=== PATIENT | female | born 1930 | race Caucasian/White ===

== ENCOUNTER 2017-02-11 11:30 | Emergency (ER) | payer OTHER, MEDICARE ==
[~2017-02-11] VITALS: Ht 160 cm; Wt 68.0 kg
[~2017-02-11 11:30] MED LIST: ASPIR 8181 MG PO; ASPIRIN CHILDRE81 MG PO; AVAPRO150 M1 PO; CALCIUM 600600 M1 PO; CORGARD20 MG PO; DOXYCYCLINE100 M3 PO; ECOTRIN81 MG PO; IRBESARTAN300 MG PO; MAGNESIUM OXID400 M1 PO; METHENAMINE HIPP1 GM PO; MOTRIN 400 MG400 MG PO; MOTRIN IB200 MG PO; NITROFURANTOIN100 MG PO; NORVASC 2.5 MG2.5 MG PO; OMEGA-3 FISH O1 EAC4 PO; PRAVASTATIN SOD40 M2 PO; PREDNISONE 1 MG1 MG PO; PREDNISONE5 MG PO; PRILOSEC 20MG C20 MG PO; PROBIOTIC FORM1 EACH PO; PROBIOTIC FORMU1 CAP PO; SMZ-TMP 800 MG-1 TAB PO; TEMOVATE TOP; TRIAMTERENE AND1 CAP PO; TRIAMTERENE-HCTZ 37. PO; TRIAMTERENE/HCT1 CAP PO; VITAMIN C500 M6 PO; VITAMIN D1000 IU PO
[2017-02-11 11:51] VITALS: BP 143/76
--- NOTE | 2017-02-11 12:52 | RADIOLOGY REPORT ---
EXAMINATION: XR HIP, LEFT CLINICAL INFORMATION: Pain x1 week. History of surgery. COMPARISON: Left hip radiographs 07/09/2011. TECHNIQUE: Two views of the left hip. FINDINGS: There are chronic postoperative changes of an open reduction internal fixation of a left intertrochanteric hip fracture. Hardware is intact. There is no evidence of loosening or infection. There is an exuberant medially projecting osteophyte arises from the lesser trochanter. No clear evidence of acute fracture. No dislocation. Visualized portions of the left hemipelvis reveal no abnormal finding. IMPRESSION: There are chronic postoperative changes of an open reduction internal fixation of a left intertrochanteric hip fracture. No evidence of hardware loosening or infection. An exuberant medially projecting osteophyte arising from the lesser trochanter is present which could potentially cause impingement. No clear evidence of acute fracture.
--- NOTE | 2017-02-11 13:07 | ED UPPER/LOWER EXTREMITY COMPL ---
History of Present Illness General Chief Complaint: Hip Injury Stated Complaint: HIP PAIN Source: patient, family Exam Limitations: no limitations Vital Signs & Intake/Output Vital Signs & Intake/Output Vital Signs Date Time Temp Pulse Resp B/P Pulse O2 O2 Flow FiO2 Ox Delivery Rate 02/11 1151 97.4 94 16 143/76 95 Room Air Allergies Coded Allergies: Sulfa (Sulfonamide Antibiotics) (Severe, SEVERE BODY RASH 01/30/16) cephalexin (Severe, "PIA JOSE SYNDROME" 01/30/16) Penicillins (Intermediate, RASH 01/30/16) levofloxacin (Intermediate, SORES IN MOUTH 01/30/16) sulfamethoxazole (From BACTRIM) (Intermediate, RASH 01/30/16) trimethoprim (From BACTRIM) (Intermediate, RASH 01/30/16) Quinolones (RASH 01/30/16) nitrofurantoin (SJS 01/30/16) ibuprofen (Mild, GI UPSET 01/30/16) Reconcile Medications Ascorbic Acid (Vitamin C) 500 MG TAB 1 TAB PO DAILY SUPPLEMENT (Reported) Aspirin (Ecotrin) 81 MG TABLET.DR 1 TAB PO DAILY HEART HEALTH START TAKING ON 01/15/15 Calcium Carbonate (Calcium 600) 600 MG TAB 1 TAB PO DAILY SUPPLEMENT ( Reported) Cholecalciferol (Vitamin D3) 1,000 UNIT TABLET 1 TAB PO DAILY SUPPLEMENT ( Reported) Inulin/Lactobacillus Sporoge (Probiotic Formula) 1 CAP CAP 1 CAP PO DAILY GI (Reported) Irbesartan (Avapro) 150 MG TAB 1 TAB PO QHS BLOOD PRESSURE (Reported) Magnesium Oxide 400 MG TABLET 1 TAB PO DAILY SUPPLEMENT (Reported) Methenamine Hippurate 1 GRAM TABLET 1 TAB PO BID uti PROPHYLAXIS (Reported) Nadolol (Corgard) 20 MG TABLET 1 TAB PO DAILY HYPERTENSION (Reported) OMEGA-3/DHA/EPA/FISH OIL ([place]-3 Fish Oil 1,000 MG Sftg) 300 MG-1,000 MG CAPSULE 1 TAB PO TID SUPLLEMENT (Reported) Omeprazole (Prilosec) 20 MG CAPSULE.DR 2 TAB PO DAILY REFLUX Pravastatin Sodium (Pravastatin) 40 MG TAB 1 TAB PO DAILY CHOLOSTEROL ( Reported) Prednisone 5 MG TAB 1 TAB PO DAILY PMR (Reported) Triage Note: 87 Y/O FEMALE C/O L HIP PAIN RADIATING DOWN L LEG SINCE THE WEEKEND. PT STATES SHE HAD SURGERY 6 YEARS AGO AND NOTICED THE PAIN STARTED LAST WEEK WITH NO INJURY OR TRAUMA. HAS BEEN TAKING TYLENOL WITH GOOD RELIEF. DECLINES OFFER OF MEDS OR W/C. XRAY ORDERED. Triage Nurses Notes Reviewed? yes Onset: Gradual Duration: getting worse Severity: moderate Severity Numbers: 5 No Modifying Factors: none HPI: Patient is a 87-year-old female with a past medical history of left hip fracture with open reduction internal fixation performed by orthopedic Dr. Mariano approximate 6 years ago where patient presents to the emergency room with a gradual onset of a 4-6 week history of left-sided worsening left hip pain. Patient denies any mechanism injury or recent fall. Patient does state intermittently she complains of shooting pain down her leg. Patient has been taking Tylenol with relief of symptoms. Patient denies any back pain abdominal pain leg swelling nausea vomiting dysuria or hematuria or fever chills. Patient states that she has been asymptomatic of left leg shooting pain for the past 24 hours. Patient states ambulation makes worse. (MINGO CLAIRE) Past History Travel History Traveled to [place] past 21 day No Medical History Any Pertinent Medical History? none Neurological: NONE EENT: NONE Cardiovascular: CAD, hypertension Respiratory: NONE Gastrointestinal: NONE Hepatic: NONE Renal: NONE Musculoskeletal: NONE Psychiatric: NONE Endocrine: NONE Blood Disorders: NONE Cancer(s): NONE History of MRSA: No History of VRE: No History of CDIFF: No Pneumonia Vaccine: 07/13/11 Influenza Vaccine: 09/01/14 Surgical History Surgical History: non-contributory Psychosocial History Who do you live with Spouse Services at Home None What is your primary language Moroccan Tobacco Use: Never used Family History Family History, If Any: Relation not specified for: FH: CAD (coronary artery disease) Hx Contributory? No (MINGO CLAIRE) Review of Systems Review of Systems Constitutional: Reports: no symptoms. EENTM: Reports: no symptoms. Respiratory: Reports: no symptoms. Cardiovascular: Reports: no symptoms. Gastrointestinal/Abdominal: Reports: no symptoms. Genitourinary: Reports: no symptoms. Musculoskeletal: Reports: see HPI, joint pain. Skin: Reports: no symptoms. Neurological/Psychological: Reports: no symptoms. Hematologic/Endocrine: Reports: no symptoms. Immunological: Reports: no symptoms. All Other Systems: Reviewed and Negative (MINGO CLAIRE) Physical Exam Physical Exam General Appearance: no apparent distress, alert Neurologic/Tendon: normal sensation, normal motor functions, normal tendon functions, responds to pain, no evidence tendon injury, no pulse deficit Skin: intact, normal color, warm/dry Comments: Well-developed well-nourished person in no acute distress HEENT: Normal EENT exam,. Neck: Supple, no lymphadenopathy, normal range of motion without pain or tenderness Back: Nontender, no CVA tenderness. Abdomen: Soft, nontender nondistended, no appreciable organomegaly. Normal bowel sounds. No ascites Extremity: No edema, no calf tenderness to palpation, normal and equal pulses. Left hip normal- Gen. lateral and posterior point tenderness noted full active range of motion noted 5 out of 5 resisted range of motion noted with flexion abduction and adduction Left knee normal inspection full active range of motion Left lower extremity dermatomes intact no swelling pedal pulse +2 Neuro: Alert oriented x3, motor sensory normal, Skin: No appreciable rash on exposed skin, skin is warm and dry. Psych: Mood and affect is normal, memory and judgment is normal. (KARON ROUSE,MINGO) Progress Differential Diagnosis: arterial insufficiency, compartment syndrome, contusion, dislocation, DVT, fracture, gout, septic arthritis, sprain, tendon injury Plan of Care: Patient has concerns of osteophyte projection noted on x-ray, no hardware displacement no acute findings no acute fracture. Patient has no concerns of abdominal pain or back pain. Patient was ambulated in the emergency room noted to have steady gait. However discussed with patient and the point of fall prevention. Patient's daughter also works at [employer] from [employer] which I discussed disposition plan with her and she agrees and she'll follow-up with or fell or primary care doctor for physical therapy referral. She also device that I just continue with Tylenol regimen for pain. Discussed disposition with Dr. HANYE who agrees Diagnostic Imaging: Viewed by Me: Radiology Read. Radiology Impression: no fracture Comments: PATIENT: HIRAL BRAY PRESENT AGE: 87 PATIENT ACCOUNT NO: [id number] : [birth year] LOCATION: [facility] ORDERING PHYSICIAN: CRICKET HANEY DO SERVICE DATE: 02/11/174236 EXAM TYPE: RAD - XRY-HIP 2-3 VIEWS, LEFT EXAMINATION: XR HIP, LEFT CLINICAL INFORMATION: Pain x1 week. History of surgery. COMPARISON: Left hip radiographs 07/09/2011. TECHNIQUE: Two views of the left hip. FINDINGS: There are chronic postoperative changes of an open reduction internal fixation of a left intertrochanteric hip fracture. Hardware is intact. There is no evidence of loosening or infection. There is an exuberant medially projecting osteophyte arises from the lesser trochanter. No clear evidence of acute fracture. No dislocation. Visualized portions of the left hemipelvis reveal no abnormal finding. IMPRESSION: There are chronic postoperative changes of an open reduction internal fixation of a left intertrochanteric hip fracture. No evidence of hardware loosening or infection. An exuberant medially projecting osteophyte arising from the lesser trochanter is present which could potentially cause impingement. No clear evidence of acute fracture. (MINGO CLAIRE) Departure Departure Disposition: HOME OR SELF CARE Condition: Stable Clinical Impression Primary Impression: Left hip pain Referrals: ALISON GARAY MD (PCP/Family) Additional Instructions: As discussed now at all Times please use your assisted walker at home for fall prevention. Follow-up with your primary care doctor and/or your orthopedic doctor for further evaluation and physical therapy referral. Continue over-the- counter Tylenol as directed for pain and inflammation. Begin icing or heating the area for relief of your pain. If symptoms worsen return to emergency room. Departure Forms: Customer Survey General Discharge Information (MINGO CLAIRE) PA/MANAGING COGNITIVE ENGINEER Co-Sign Statement Statement: ED Attending supervision documentation- [X] I saw and evaluated the patient. I have also reviewed all the pertinent lab results and diagnostic results. I agree with the findings and the plan of care as documented in the PA's/MANAGING COGNITIVE ENGINEER's documentation. [] I have reviewed the ED Record and agree with the PA's/MANAGING COGNITIVE ENGINEER's documentation. [] Additions or exceptions (if any) to the PAs/MANAGING COGNITIVE ENGINEER's note and plan are summarized below: [] (CRICKET HANEY DO)
== END 2017-02-11 13:50 ==
LOC: ERH 11:30
DX: M25.552 Pain in left hip (principal)
CPT/HCPCS: 73502-LT

== ENCOUNTER 2017-05-21 23:10 | Inpatient (IN) | payer OTHER, MEDICARE ==
[~2017-05-21] VITALS: Ht 160 cm; Wt 64.9 kg
--- NOTE | 2017-05-21 23:43 | NUR ---
TRIAGE: PT TO ED WITH DAUGHTER BECAUSE PATIENT GOT UP OFF TOILET AND FOUND BRB IN TOILET. HX DIVERTICULOSIS, UPPER GI BLEED WITH NEED FOR TRANSFUSION. DENIES PAIN ON PALPATION, REPORTS INTERMITTENT CRAMPING. AAOX3, BP 105/70 BUT REPORTS TAKING NIGHTTIME BP MEDS THIS EVENING. DENIES N/V
--- NOTE | 2017-05-21 23:45 | NUR ---
IV ESTABLISHED AND LABS DRAWN AND SENT (BLUE, SST X2, LAV, BTAEMAN, PINK)
[2017-05-21 23:50] LABS: ABSOLUTE BASOPHIL COUNT 0 /CUMM (0.0-0.2); ABSOLUTE EOSINOPHIL COUNT 0.1 /CUMM (0.0-0.7); ABSOLUTE GRANULOCYTE CT 5.2 /CUMM (1.4-6.5); ABSOLUTE LYMPH COUNT 1.9 /CUMM (1.2-3.4); ABSOLUTE MONOCYTE COUNT 0.9 /CUMM (0.10-0.60); BASOPHIL % 0.6 % (0.0-2.0); EOSINOPHIL % 1.7 % (0-5); GRANULOCYTE % 63.9 % (42.2-75.2); HEMATOCRIT 35.7 % (37-47); MEAN CORPUSCULAR HGB 32.7 PG (27.0-31.0); MEAN CORPUSCULAR HGB CONC 32.8 G/DL (33.0-37.0); MEAN CORPUSCULAR VOLUME 99.7 FL (81.0-99.0); MEAN PLATELET VOLUME 10.4 FL (7.4-10.4); PLATELET COUNT 200 /CUMM (130-400); RBC DISTRIBUTION WIDTH 13.8 % (11.5-14.5); RED BLOOD CELL CT 3.58 /CUMM (4.20-5.40); WHITE BLOOD CELL COUNT 8.1 /CUMM (4.8-10.8)
--- NOTE | 2017-05-21 23:58 | ED GI/GU/ABDOMINAL COMPLAINT ---
History of Present Illness General Chief Complaint: General Adult Stated Complaint: BLEEDING PER RECTUM Source: patient, family, old records Exam Limitations: no limitations Vital Signs & Intake/Output Vital Signs & Intake/Output Vital Signs Date Time Temp Pulse Resp B/P B/P Pulse O2 O2 Flow FiO2 Mean Ox Delivery Rate 05/22 0336 146/68 05/22 0012 71 152/64 05/21 2328 97.4 71 16 105/70 97 Room Air ED Intake and Output 05/22 0000 05/21 1200 Intake Total Output Total Balance Patient 143 lb Weight Weight Reported by Patient Measurement Method Allergies Coded Allergies: Sulfa (Sulfonamide Antibiotics) (Severe, SEVERE BODY RASH 01/30/16) cephalexin (Severe, "PIA JOSE SYNDROME" 01/30/16) Penicillins (Intermediate, RASH 01/30/16) levofloxacin (Intermediate, SORES IN MOUTH 01/30/16) sulfamethoxazole (From BACTRIM) (Intermediate, RASH 01/30/16) trimethoprim (From BACTRIM) (Intermediate, RASH 01/30/16) Quinolones (RASH 01/30/16) nitrofurantoin (SJS 01/30/16) ibuprofen (Mild, GI UPSET 01/30/16) Reconcile Medications Ascorbic Acid (Vitamin C) 500 MG TAB 1 TAB PO DAILY SUPPLEMENT (Reported) Aspirin (Ecotrin) 81 MG TABLET.DR 1 TAB PO DAILY HEART HEALTH START TAKING ON 01/15/15 Calcium Carbonate (Calcium 600) 600 MG TAB 1 TAB PO DAILY SUPPLEMENT ( Reported) Cholecalciferol (Vitamin D3) 1,000 UNIT TABLET 1 TAB PO DAILY SUPPLEMENT ( Reported) Inulin/Lactobacillus Sporoge (Probiotic Formula) 1 CAP CAP 1 CAP PO DAILY GI (Reported) Irbesartan (Avapro) 150 MG TAB 1 TAB PO QHS BLOOD PRESSURE (Reported) Magnesium Oxide 400 MG TABLET 1 TAB PO DAILY SUPPLEMENT (Reported) Methenamine Hippurate 1 GRAM TABLET 1 TAB PO BID uti PROPHYLAXIS (Reported) Nadolol (Corgard) 20 MG TABLET 1 TAB PO DAILY HYPERTENSION (Reported) OMEGA-3/DHA/EPA/FISH OIL ([place]-3 Fish Oil 1,000 MG Sftg) 300 MG-1,000 MG CAPSULE 1 TAB PO TID SUPLLEMENT (Reported) Omeprazole (Prilosec) 20 MG CAPSULE.DR 2 TAB PO DAILY REFLUX Pravastatin Sodium (Pravastatin) 40 MG TAB 1 TAB PO DAILY CHOLOSTEROL ( Reported) Prednisone 5 MG TAB 1 TAB PO DAILY PMR (Reported) Triage Note: TRIAGE: PT TO ED WITH DAUGHTER BECAUSE PATIENT GOT UP OFF TOILET AND FOUND BRB IN TOILET. HX DIVERTICULOSIS, UPPER GI BLEED WITH NEED FOR TRANSFUSION. DENIES PAIN ON PALPATION, REPORTS INTERMITTENT CRAMPING. AAOX3, BP 105/70 BUT REPORTS TAKING NIGHTTIME BP MEDS THIS EVENING. DENIES N/V. APPEARS PALE. DAUGHTER REPORTS PT HAS BEEN FEELING TIRED LATELY. IV ESTABLISHED AND LABS DRAWN AND SENT FROM [facility] (BLUE, SST X2, LAV, BATEMAN, PINK). PT TO ROOM 11 Triage Nurses Notes Reviewed? yes ? N Is pt currently ? No HPI: Patient was getting ready for bed and went to the bathroom and had 1 episode of bright red blood per rectum. Patient states that she did get some crampy left lower quadrant abdominal pain that lasted approximately 10-15 minutes and then resolved. There were no clots. There is no nausea or vomiting. Patient called her daughter, who is a GI nurse. Her daughter saw the bright red blood in the toilet full. Patient states that over the past few days she has been feeling weaker than normal. There is no nausea or vomiting. There are no fevers or chills. The crampy abdominal pain she rated at 3 out of 10 and is currently 0 out of 10. There is no radiation. There are no aggravating or mitigating factors. Patient does have a history of diverticulosis. Patient also had a peptic ulcer which required a transfusion a few years ago. Past History Travel History Traveled to [place] past 21 day No Medical History Any Pertinent Medical History? see below for history Neurological: NONE EENT: NONE Cardiovascular: CAD, hypertension Respiratory: NONE Gastrointestinal: NONE, upper GI bleed Hepatic: NONE Renal: NONE Musculoskeletal: NONE Psychiatric: NONE Endocrine: NONE Blood Disorders: NONE Cancer(s): NONE History of MRSA: No History of VRE: No History of CDIFF: No Surgical History Surgical History: non-contributory Psychosocial History Who do you live with Spouse Services at Home None What is your primary language Egyptian Tobacco Use: Never used ETOH Use: denies use Family History Family History, If Any: Relation not specified for: FH: CAD (coronary artery disease) Hx Contributory? No Review of Systems Review of Systems Constitutional: Reports: see HPI, weakness. EENTM: Reports: no symptoms. Respiratory: Reports: no symptoms. Cardiovascular: Reports: no symptoms. GI: Reports: see HPI. Genitourinary: Reports: no symptoms. Musculoskeletal: Reports: no symptoms. Skin: Reports: no symptoms. Neurological/Psychological: Reports: no symptoms. Hematologic/Endocrine: Reports: no symptoms. Immunologic/Allergic: Reports: no symptoms. All Other Systems: Reviewed and Negative Physical Exam Physical Exam General Appearance: well developed/nourished, alert, awake Head: atraumatic Eyes: Bilateral: PERRL, EOMI, other (PINK CONJUNCTIVA). Ears, Nose, Throat, Mouth: hearing grossly normal, moist mucous membrane Neck: normal inspection, supple, full range of motion Respiratory: normal breath sounds, chest non-tender, no respiratory distress, lungs clear Cardiovascular: regular rate/rhythm, normal peripheral pulses Gastrointestinal: normal bowel sounds, soft, no organomegaly, tenderness (RLQ), NO REBOUND OR GUARDING Rectal: BROWN STOOL HEME POSITIVE Back: normal inspection, normal range of motion Extremities: normal range of motion Neurologic/Psych: no motor/sensory deficits, awake, alert, oriented x 3, normal gait, normal mood/affect Skin: intact, normal color, warm/dry Core Measures ACS in differential dx? No Severe Sepsis Present: No Septic Shock Present: No Progress Differential Diagnosis: appendicitis, diverticulitis, hemorrhoids, ischemic bowel, inflamm bowel dis, pancreatitis Plan of Care: Orders Procedure Date/time Status Admit to inpatient 05/22 0345 Active MISTAKE 05/21 2356 Active EKG 05/21 2356 Active LACTIC ACID 05/21 2331 Complete COMPREHENSIVE METABOLIC PANEL 05/21 2331 Complete CBC WITHOUT DIFFERENTIAL 05/21 2331 Complete Laboratory Tests 05/22/17 0231: Lactic Acid Cancelled 05/21/17 2340: Anion Gap 8, Estimated GFR > 60, BUN/Creatinine Ratio 27.5 H, Glucose 107 H, Lactic Acid 1.1, Calcium 9.4, Total Bilirubin 0.4, AST 30, ALT 38, Alkaline Phosphatase 65, Total Protein 6.8, Albumin 3.7, Globulin 3.1, Albumin/Globulin Ratio 1.2, CBC w Diff NO MAN DIFF REQ, RBC 3.58 L, MCV 99.7 H, MCH 32.7 H, RDW 13.8, MPV 10.4, Gran % 63.9, Lymphocytes % 23.2, Monocytes % 10.6 H, Eosinophils % 1.7, Basophils % 0.6, Absolute Granulocytes 5.2, Absolute Lymphocytes 1.9, Absolute Monocytes 0.9 H, Absolute Eosinophils 0.1, Absolute Basophils 0, PUBS MCHC 32.8 L Diagnostic Imaging: Viewed by Me: CT Scan. Discussed w/RAD: CT Scan. Radiology Impression: PATIENT: HIRAL BRAY PRESENT AGE: 87 PATIENT ACCOUNT NO: [id number] : [birth year] LOCATION: [facility] ORDERING PHYSICIAN: GOLDIE DODSON MD SERVICE DATE: 05/22/17 EXAM TYPE: CAT - CT ABD & PELVIS W IV CONTRAST EXAMINATION: CT ABDOMEN AND PELVIS WITH CONTRAST CLINICAL INFORMATION: Left lower quadrant pain, bright red blood per rectum COMPARISON: 04/20/2014 TECHNIQUE: Multidetector volumetric imaging was performed of the abdomen and pelvis before and after the IV administration of 95 mL of Optiray 320 intravenous contrast. Sagittal and coronal reformatted images were obtained on the technologist's workstation. DLP: 289.42 mGy-cm FINDINGS: LUNG BASES: The visualized lung bases are unremarkable. LIVER, GALLBLADDER, AND BILIARY TREE: There is prominence of the left hepatic lobe with no discrete mass seen. No focal hepatic lesion or biliary ductal dilatation is present. The gallbladder is grossly unremarkable. PANCREAS: Unremarkable. SPLEEN: There is minimal perisplenic hypoattenuation suggestive of subcapsular fluid; this appears unchanged from prior. ADRENAL GLANDS: The left adrenal gland is diffusely prominent, unchanged from prior. The right adrenal gland appears unremarkable. KIDNEYS AND URETERS: The kidneys are normal in size, shape, and attenuation. There are a few small low-density renal lesions bilaterally, statistically favored to represent cysts. No hydronephrosis, hydroureter, or obstructing calculi seen. No perinephric stranding. BLADDER: Unremarkable. GASTROINTESTINAL TRACT: There is a segment of mural prominence in the mid sigmoid colon with mild adjacent stranding in the setting of diverticula; a mild diverticulitis cannot be excluded. No evidence of bowel obstruction. No free fluid or free air is seen. ABDOMINAL WALL: No significant hernia is appreciated. LYMPH NODES: Normal. VASCULAR: There is atherosclerotic calcification along the aorta. PELVIC VISCERA: Patient appears status post hysterectomy. OSSEOUS STRUCTURES: Left femoral fixation hardware is partially visualized. Degenerative changes are noted in the spine. There are central compression deformity in the colon vertebral body, suggestive of a prominent Schmorl's node. IMPRESSION: Segment of mural prominence in the mid sigmoid colon containing diverticula with mild adjacent stranding; a mild diverticulitis is a possibility in the proper clinical setting. Correlation with recent or followup colonoscopy is advised, however, to exclude an underlying mass lesion. DICTATED BY: MADDI ARTHUR MD DATE/TIME DICTATED:05/22/17321 FULL SERVICE VENDING DRIVER:AMBIKA DATE/TIME TRANSCRIBED:05/22/17321 CONFIDENTIAL, DO NOT COPY WITHOUT APPROPRIATE AUTHORIZATION. <Electronically signed in Other Vendor System> SIGNED BY: MADDI ARTHUR MD 05/22/17333 Initial ED EKG: NSR, no ST T wave changes Prior EKG: unchanged Comments: Patient's hematocrit has dropped from 41 down to 35. Patient had to use the commode and it was again bright red blood per rectum. Departure Departure Disposition: STILL A PATIENT Condition: Guarded Clinical Impression Primary Impression: Lower GI bleed Referrals: ALISON GARAY MD (PCP/Family) Departure Forms: Customer Survey General Discharge Information Admission Note Spoke With: ALISON GARAY MD Documentation of Exam: Documentation of any treatments & extenuating circumstances including Concerns Regarding Discharge (functional status, medication knowledge or non-compliance, living conditions, etc.) that warrant an admission rather than observation: [ICU admission for close monitoring. Patient's hematocrit has dropped 7 points in 19 days. Patient will need gastroenterology consultation and possible colonoscopy. If she begins to bleed more she may require a bleeding scan and interventional radiology for possible embolization.] Critical Care Note Critical Care Note Critical Care Time: mins: (45 MIN)
--- NOTE | 2017-05-22 00:01 | NUR ---
PT MEDICATED WITH NS INFUSING PER EMAR
--- NOTE | 2017-05-22 00:10 | NUR ---
EKG DONE AND SHOWN TO
--- NOTE | 2017-05-22 01:23 | NUR ---
PT RESTING COMFORTABLY ON STRETCHER AT THIS TIME, DENIES ANY PAIN. PT DENIES ANY COMPLAINTS AT THIS TIME. WILL CTM.
--- NOTE | 2017-05-22 01:53 | NUR ---
PT TO CAT SCAN VIA STRETCHER
--- NOTE | 2017-05-22 02:13 | NUR ---
PT FROM CAT SCAN VIA STRETCHER
--- NOTE | 2017-05-22 02:34 | NUR ---
RAKESH SALAZAR TO BEDSIDE FOR ASSISTANCE TO COMMODE. PER RAKESH SALAZAR LARGE AMOUNT OF BRIGHT RED BLOOD OUT OF PT RECTUM. PT ASYMPTOMATIC. MADE AWARE
--- NOTE | 2017-05-22 03:24 | NUR ---
PT REMAINS RESTING IN STRETCHER AT THIS TIME. OFFERING NO COMPLAINTS. ASLEEP WITH RR NOTED. WILL CTM.
--- NOTE | 2017-05-22 03:34 | CT SCAN REPORT ---
EXAMINATION: CT ABDOMEN AND PELVIS WITH CONTRAST CLINICAL INFORMATION: Left lower quadrant pain, bright red blood per rectum COMPARISON: 04/20/2014 TECHNIQUE: Multidetector volumetric imaging was performed of the abdomen and pelvis before and after the IV administration of 95 mL of Optiray 320 intravenous contrast. Sagittal and coronal reformatted images were obtained on the technologist's workstation. DLP: 289.42 mGy-cm FINDINGS: LUNG BASES: The visualized lung bases are unremarkable. LIVER, GALLBLADDER, AND BILIARY TREE: There is prominence of the left hepatic lobe with no discrete mass seen. No focal hepatic lesion or biliary ductal dilatation is present. The gallbladder is grossly unremarkable. PANCREAS: Unremarkable. SPLEEN: There is minimal perisplenic hypoattenuation suggestive of subcapsular fluid; this appears unchanged from prior. ADRENAL GLANDS: The left adrenal gland is diffusely prominent, unchanged from prior. The right adrenal gland appears unremarkable. KIDNEYS AND URETERS: The kidneys are normal in size, shape, and attenuation. There are a few small low-density renal lesions bilaterally, statistically favored to represent cysts. No hydronephrosis, hydroureter, or obstructing calculi seen. No perinephric stranding. BLADDER: Unremarkable. GASTROINTESTINAL TRACT: There is a segment of mural prominence in the mid sigmoid colon with mild adjacent stranding in the setting of diverticula; a mild diverticulitis cannot be excluded. No evidence of bowel obstruction. No free fluid or free air is seen. ABDOMINAL WALL: No significant hernia is appreciated. LYMPH NODES: Normal. VASCULAR: There is atherosclerotic calcification along the aorta. PELVIC VISCERA: Patient appears status post hysterectomy. OSSEOUS STRUCTURES: Left femoral fixation hardware is partially visualized. Degenerative changes are noted in the spine. There are central compression deformity in the colon vertebral body, suggestive of a prominent Schmorl's node. IMPRESSION: Segment of mural prominence in the mid sigmoid colon containing diverticula with mild adjacent stranding; a mild diverticulitis is a possibility in the proper clinical setting. Correlation with recent or followup colonoscopy is advised, however, to exclude an underlying mass lesion.
--- NOTE | 2017-05-22 04:11 | NUR ---
HOUSE STAFF AT BEDSIDE FOR PT EVALUATION
--- NOTE | 2017-05-22 04:33 | History & Physical ---
JULEE GUPTA MD 05/22/17 0433: General Information and HPI MD Statement: I have seen and personally examined HIRAL BRAY and documented this H&P. The patient is a 87 year old F who presented with a patient stated chief complaint of bleeding per rectum. Source of Information: patient, family Exam Limitations: no limitations History of Present Illness: Ms. Bray is a pleasant 87 year old female with PMH polymyalgia rheumatica, HTN, coronary artery disease, uterine prolapse, upper GI bleed requiring blood transfusion and is hard of hearing who presents with chief complaint of bright red blood per rectum. The patient's two daughters are at bedside during history and physical and contribute to the history intermittently. According to the patient, she was in her normal state of health until this evening around 10:30 PM when she was using the restroom prior to retiring to bed and noticed that the toilet was covered with bright red blood. Patient did not have a bowel movement during this time and experienced no pain per rectum. She did endorse mild lower abdominal cramping without other complaints. Patient has never experienced this before, though she previously had one episode of dark stools this AM around 10 AM which she attributed to eating a lot of blueberries. Of note, patient had a prior GI bleed which was marked by dark black, heme-positive stools. Review of systems as this time is unremarkable , including no dizziess, vision changes, chest pain, palpitations, shortness of breath, dyspnea on exertion, abdominal pain, nausea, vomiting or blood in her urine. Social history is unremarkable, specificalyl she denies no tobacco, alcohol or illicit drug use. No recent reports of falls. Patient follows with Dr. Rashad MD as her PCP, Dr. Francis MD for her PMR, Dr. Farida MD for her GI bleed, Dr. Ivan MD for urology and Dr. Marvin MD for her CAD. Patient was evaluated by Dr. Marvin MD this week for mild lower extremity edema and according to the patient he made no changes to her current cardiac regimen. Allergies/Medications Allergies: Coded Allergies: Sulfa (Sulfonamide Antibiotics) (Severe, SEVERE BODY RASH 01/30/16) cephalexin (Severe, "PIA JOSE SYNDROME" 01/30/16) Penicillins (Intermediate, RASH 01/30/16) levofloxacin (Intermediate, SORES IN MOUTH 01/30/16) sulfamethoxazole (From BACTRIM) (Intermediate, RASH 01/30/16) trimethoprim (From BACTRIM) (Intermediate, RASH 01/30/16) Quinolones (RASH 01/30/16) nitrofurantoin (SJS 01/30/16) ibuprofen (Mild, GI UPSET 01/30/16) Home Med list Amlodipine Besylate 5 MG TABLET 1 TAB PO DAILY BP (Reported) Ascorbic Acid (Vitamin C) 500 MG TAB 1 TAB PO DAILY SUPPLEMENT (Reported) Inulin/Lactobacillus Sporoge (Probiotic Formula) 1 CAP CAP 1 CAP PO DAILY GI (Reported) Irbesartan (Avapro) 150 MG TAB 1 TAB PO QHS BLOOD PRESSURE (Reported) Magnesium Oxide 400 MG TABLET 1 TAB PO DAILY SUPPLEMENT (Reported) Metoprolol Succ XL (Toprol Xl) 50 MG TAB 1 TAB PO DAILY bp (Reported) OMEGA-3/DHA/EPA/FISH OIL ([place]-3 Fish Oil 1,000 MG Sftg) 300 MG-1,000 MG CAPSULE 1 TAB PO TID SUPLLEMENT (Reported) Pravastatin Sodium (Pravastatin) 40 MG TAB 1 TAB PO DAILY CHOLOSTEROL ( Reported) Compliance With Home Meds: GOOD Past History Travel History Traveled to [place] past 21 day No Medical History Neurological: NONE EENT: NONE Cardiovascular: CAD, hypertension Respiratory: NONE Gastrointestinal: NONE, upper GI bleed Hepatic: NONE Renal: NONE Musculoskeletal: NONE Psychiatric: NONE Endocrine: NONE Blood Disorders: NONE Cancer(s): NONE History of MRSA: No History of VRE: No History of CDIFF: No Surgical History Surgical History: non-contributory Past Family/Social History Family History Relations & Conditions if any Relation not specified for: FH: CAD (coronary artery disease) Psychosocial History Where do you live? Home Services at Home: None Smoking Status: Never Smoked ETOH Use: denies use Review of Systems Review of Systems Constitutional: Denies: chills, fever, malaise. EENTM: Denies: blurred vision, visual changes, nasal congestion. Cardiovascular: Reports: peripheral edema. Denies: chest pain, palpitations. Respiratory: Denies: cough, short of breath. GI: Reports: bloody stool. Denies: abdominal pain, vomiting. Genitourinary: Denies: dysuria, hematuria. Musculoskeletal: Denies: back pain, neck pain. Skin: Denies: lesions, rash. Neurological/Psychological: Denies: confusion, headache. Hematologic/Endocrine: Denies: bruising, polyuria. Immunologic/Allergic: Denies: splenectomy. All Other Systems: Reviewed and Negative Exam & Diagnostic Data Last 24 Hrs of Vital Signs/I&O Vital Signs Date Time Temp Pulse Resp B/P B/P Pulse O2 O2 Flow FiO2 Mean Ox Delivery Rate 05/22 0406 97.7 71 18 178/79 97 Room Air 05/22 0336 146/68 05/22 0012 71 152/64 05/21 2328 97.4 71 16 105/70 97 Room Air Intake & Output 05/22 0800 05/22 0000 05/21 1600 Intake Total 1000 Output Total Balance 1000 Intake, IV 1000 Patient 143 lb Weight Weight Reported by Patient Measurement Method Physical Exam General Appearance Alert, Oriented X3, Cooperative, No Acute Distress Skin No Significant Lesion, 1 cm x 1 cm depression in tailbone area present on admission Skin Temp/Moisture Exam: Warm/Dry HEENT Atraumatic, PERRLA, EOMI, Mucous Membr. moist/pink Neck Supple, No JVD, No thryomegaly Lymphatic Cervical nl Cardiovascular Regular Rate, Normal S1, Normal S2, 1/6 Systolic murmur Lungs Clear to Auscultation, Normal Air Movement Abdomen Normal Bowel Sounds, Soft, No Tenderness, No Masses Neurological Normal Speech, Normal Tone Extremities No Clubbing, No Cyanosis, No Edema Vascular Pulses Symmetrical Rectal Fissures appreciated with blood noted, previous SANDY by ED physician showed brown stool with guiac + Last 24 Hrs of Labs/Kong: Laboratory Tests 05/22/17 0425: PT Pending, INR Pending 05/22/17 0231: Lactic Acid Cancelled 05/21/17 2340: Anion Gap 8, Estimated GFR > 60, BUN/Creatinine Ratio 27.5 H, Glucose 107 H, Lactic Acid 1.1, Calcium 9.4, Total Bilirubin 0.4, AST 30, ALT 38, Alkaline Phosphatase 65, Troponin I Pending, Total Protein 6.8, Albumin 3.7, Globulin 3.1 , Albumin/Globulin Ratio 1.2, CBC w Diff NO MAN DIFF REQ, RBC 3.58 L, MCV 99.7 H, MCH 32.7 H, RDW 13.8, MPV 10.4, Gran % 63.9, Lymphocytes % 23.2, Monocytes % 10.6 H, Eosinophils % 1.7, Basophils % 0.6, Absolute Granulocytes 5.2, Absolute Lymphocytes 1.9, Absolute Monocytes 0.9 H, Absolute Eosinophils 0.1, Absolute Basophils 0, PUBS MCHC 32.8 L Diagnostic Data EKG Results NSR HR 69 bpm, QTC 437, no ST/T wave changes. Other Results Abdominal/pelvis CT: IMPRESSION: Segment of mural prominence in the mid sigmoid colon containing diverticula with mild adjacent stranding; a mild diverticulitis is a possibility in the proper clinical setting. Correlation with recent or followup colonoscopy is advised, however, to exclude an underlying mass lesion. Assessment/Plan Assessment: Ms. Bray is a pleasant 87 year old female with PMH polymyalgia rheumatica, HTN, coronary artery disease, uterine prolapse, upper GI bleed requiring PRBC transfusion and is hard of hearing who presents with chief complaint of bright red blood per rectum. The patient has never experienced BRBPR before and had a subsequent episode while in the emergency room. Review of systems at this time is signicant for lower abdominal cramping pain and bright red blood per rectum. In the ED: Vital signs showed T 97.4, HR 71, RR 16, BP 105/70 increased to 146/ 68 after a 1 L normal saline bolus and 97% on RA. Labs showed: WBC 8.1, H&H 11.7/35.7, MCV high to 99.7, Plt 200, Na 141, K 4.3, Cl 106, HCO3 28, BUN/cre 22/0.8, Glu 107, lactic acid 1.1, AST/ALT within normal limits and INR 1.04. Abdominal/pelvic CT showed mural prominence in the mid sigmoid colon containing diverticula with mild adjacent stranding. Patient is currently being admitted to the ICU and the following is the management: 1. Lower GI bleed * Differential includes bleeding diverticula (diverticula seen on CT abdomen/ pelvis), hemorrhoids/ulcers, angiodysplasia, rapid transit UGIB among others * Of note, large drop in Hct from 41% on May 03 to 35.7% today * NPO for now * IV fluids with NS at 75 cc/h * PPI daily * Monitor H&H with CBC , send type and screen, transfuse if Hgb <8 * Monitor vital signs closely (patient now hypertensive to 170s, will not hold antihypertensives but if she becomes borderline low/low BP, then place on hold) * GI consult with Dr. Farida MD placed for AM * Initial EKG shows no change from prior, follow up troponin 2. Macrocytosis * MCV slightly elevated to 99.7 * Follow up thiamine, folate, B12 3. CAD, HTN * Continuous telemetry monitoring for now * Resume home medications including amlodipine, metoprolol XL, pravastatin, losartan * Vital signs Q shift FULL CODE DVTP: ALPS Diet: NPO Mild pain pathway As Ranked By This Provider Problem List: 1. Lower GI bleed 2. Coronary artery disease 3. Polymyalgia rheumatica 4. HTN (hypertension) Core Measures/Miscellaneous Acute Coronary Syndrome ACS Diagnosis: No Cerebrovascular Accident CVA/TIA Diagnosis: No Congestive Heart Failure CHF Diagnosis: No VTE (View Protocol) VTE Risk Factors: Acute medical illness, Age > 40, Malignancy Myelo Disorder No Mech VTE prophylaxis d/t: No contraindications No VTE Pharm Prophylaxis d/t: Active bleeding VTE Diagnosis: No VTE Type: NONE VTE Confirmed by (Test): NONE Sepsis (View Protocol) Severe Sepsis Present: No Septic Shock Septic Shock Present: No Miscellaneous Documentation Attending Case Discussed With: Dr. Rashad MD Primary Care Physician: ALISON GARAY MD Patient sees these Specialists Dr. Marvin MD- Cardiology Dr. Farida MD- GI Dr. Francis MD- Rheumatology Dr. Ivan MD- Urology Level of Patient Care: Critical Care (CRI) LIGIA DOVER 05/22/17 0511: Resident Review Statement Resident Statement: discussed with civil engineering intern, agreed with civil engineering intern, discussed with family Other Findings: Patient is 87 year old female with PMH as above. Patient was brought from home by family with the chief complain of fresh blood per rectum. Patient states that around 10.30 pm, when she used the bathroom, she noticed that the toilet bowel was full of bright red blood. She said that she had remote history of hemorroids and the daughter noticed something coming out of her rectum earlier. Patient was seen by Dr. Kervin Iqbal in december 2014 for black tary stools, patient had EGD at that time and was discharged on oral PPI. Patient also reported of lower abdominal cramps however she denied any nausea/ vomiting etc. Patient reported remote episodes of fresh blood per rectum in the past but states that it was never profuse. Vital signs showed T 97.4, HR 71, RR 16, BP 105/70 increased to 146/68 after a 1 L normal saline bolus and 97% on RA. Labs showed: WBC 8.1, H&H 11.7/35.7, MCV high to 99.7, Plt 200, Na 141, K 4.3, Cl 106, HCO3 28, BUN/cre 22/0.8, Glu 107, lactic acid 1.1, AST/ALT within normal limits and INR 1.04. Physical Exam: Alert, orientetd X 3, NAD HEENT Atraumatic, PERRLA, EOMI, Mucous Membr. moist/pink Neck Supple, No JVD, No thryomegaly Lungs Clear to Auscultation, Normal Air Movement Abdomen Normal Bowel Sounds, Soft, No Tenderness, No Masses, rectal exam showed old fissures with fresh blood. Neurological Normal Speech, Normal Tone CT abdomen done in ER: Segment of mural prominence in the mid sigmoid colon containing diverticula with mild adjacent stranding; a mild diverticulitis is a possibility in the proper clinical setting. Correlation with recent or followup colonoscopy is advised, however, to exclude an underlying mass lesion. Assesment and Plan Will admit patient to ICU for closer monitoring. Type and screen obtained, will recheck CBC in AM, patient had a drop of HB from 13 on 05/03 to 11.7 on 05/22 NPO for now IV fluids with NS at 75 cc/h Omeprazole 40 mg PO daily GI consult service requested with Dr. Iqbal Patient is restarted on her home meds including metoprolol, amlodipine, irbesartan etc. Patient is Full code DVT ppx ALPS
--- NOTE | 2017-05-22 04:35 | NUR ---
PT WENT TO BATHROOM WITH ASSISTANCE BY RAKESH SALAZAR. PER RAKESH SALAZAR NO BLOOD NOTED.
[2017-05-22] MEDS ORDERED: AMLODIPINE BESYL5 M1 PO (04:41)
[2017-05-22] MEDS ORDERED: TOPROL XL50 M1 PO (04:41)
[2017-05-22 04:42] LABS: PT 10.9 SEC (9.4-12.5)
--- NOTE | 2017-05-22 04:44 | NUR ---
SECOND IV EST #20 IN LEFT WRIST.
--- NOTE | 2017-05-22 04:49 | NUR ---
PT MEDICATED WITH NS INFUSING AT 75MLS/HR PER EMAT
--- NOTE | 2017-05-22 04:50 | NUR ---
ATTEMPTED TO CALL REPORT, TOLD THEY WOULD CALL BACK
--- NOTE | 2017-05-22 05:02 | NUR ---
REPORT GIVEN TO YUE VYAS
[2017-05-22 05:41] VITALS: BP 158/70
--- NOTE | 2017-05-22 05:46 | NUR ---
ADMISSION NOTE- Patient arrives to ICU on stretcher with [employer] and daughter. Transferred to ICU bed and placed on monitor without incident. Patient A&Ox3, follows commands, no weakness noted. NSR with BBB on monitor, HR 60's, BP- 158/70 manually. Denies chest pain, and all other pain as well. Patient is on RA, no SOB or cough noted, lungs CTA. Denies N/V and has + BS. Skin is intact without edema but is noted to be pale. Patient has 2 patent IV's with NS infusing at 75ml/hr without pain, redness or tenderness at the site. The patient offers no complaints. Oriented to staff, call system and plan of care. Will cont to monitor.
[2017-05-22 07:02] LABS: ABSOLUTE BASOPHIL COUNT 0 /CUMM (0.0-0.2); ABSOLUTE EOSINOPHIL COUNT 0.1 /CUMM (0.0-0.7); ABSOLUTE GRANULOCYTE CT 4.6 /CUMM (1.4-6.5); ABSOLUTE LYMPH COUNT 1.6 /CUMM (1.2-3.4); ABSOLUTE MONOCYTE COUNT 0.7 /CUMM (0.10-0.60); BASOPHIL % 0.3 % (0.0-2.0); GRANULOCYTE % 65.2 % (42.2-75.2); HEMATOCRIT 33.4 % (37-47); MEAN CORPUSCULAR HGB 32.9 PG (27.0-31.0); MEAN CORPUSCULAR HGB CONC 32.8 G/DL (33.0-37.0); MEAN CORPUSCULAR VOLUME 100.4 FL (81.0-99.0); MEAN PLATELET VOLUME 10.4 FL (7.4-10.4); PLATELET COUNT 189 /CUMM (130-400); RBC DISTRIBUTION WIDTH 13.4 % (11.5-14.5); RED BLOOD CELL CT 3.33 /CUMM (4.20-5.40); WHITE BLOOD CELL COUNT 7.1 /CUMM (4.8-10.8)
--- NOTE | 2017-05-22 08:29 | Cons- Gastroenterology ---
See Addendum General Information and HPI Consulting Request Date of Consult: 05/22/17 Requested By: ALISON GARAY MD Reason for Consult: I was just notified a little over an hour ago of a request for a GI consult to assess rectal bleeding in an elderly female, admitted to the ICU overnight. I was never notified by the ER. Source of Information: patient, family (pt's dtr, Meena & son, Sebastian) Exam Limitations: GAKONA History of Present Illness: 77-year-old female, HTN, HLD, medical ASHD, PMR, hypoT4, history of E. Coli urosepsis, uterine prolapse, history of PUD, DJD, osteoporosis, GAKONA with B/L hearing aids, history of transfusions (at time of UGIB from PUD & for ORIF left hip), TAHBSO, in USMO until 10:30 PM on 05/21/2017, when she felt the urge to defecate, followed by painless spontaneous BRBPR 1 in the toilet water. There was no associated stool or melena. There was no chest pain, shortness of breath , palpitation, or LOC. Initially, there was no abdominal pain. The patient's daughter, Meena Bell, who is an RN, came to her house and took her blood pressure, which was normal. The patient had recently seen her status controller, Dr. Wong, this past week for mild fatigue and mild LE edema. No changes were made in her regimen. The patient presented to the [facility] ER 05/21/2017 at 11:10 PM, after being brought in by her daughter, for evaluation of the bleeding. Upon arrival, BP 105/70, P 71, T 97.4, R 16, O2 sat RA 97%. (She had taken her usual evening anti -HTN medications prior to arrival). She recived IV NS in the ER. She was not orthostatic. The ER admitted the patient to the ICU. The patient had 1 additional episode of spontaneous BRBPR at 2:30 AM., associated with mild bilateral lower abdominal cramps Her daughter, Meena, thought that there might have been a protruding hemorrhoid. Upon further questioning, for the past few weeks, the patient noted scant painless BRB on the toilet paper after wiping, after defecation of brown stool. There was minimal constipation and perhaps slight decreased stool caliber, without any diarrhea, tenesmus, or obstipation. The patient had been on Prednisone for PMR, which had been tapered off a week ago. She was on prophylactic Omeprazole daily while on the Prednisone, in view of her past history of peptic ulcer disease. The Omeprazole was stopped 1 week IRRIGATION MANAGER, when she stopped the Prednisone. The patient denied any nausea, vomiting, hematemesis, odynophagia, dysphagia, GERD, or early satiety. She was not on any aspirin or NSAIDs. She was not on any other anti- platelet agents or anti-coagulants. There is no family history of any GI malignancy, GI disease, or inherited liver disease. The patient subsequently had a brown bowel movement without blood earlier this morning, on 05/22/2017. 09/23/2003: Surgical colonoscopy per Dr. Lazo- "negative except diverticula" (purged). No history of colon polyps. (*She has not had a colonoscopy since). 06/15/2010: normal IgA 269, tTG Ab- negative, MMA 0.18, RBC folate 436, 12/29/2014: EGD per Dr. Isael Iqbal- 2 clean-based shallow gastric ulcers at lesser curvature aspect of antrum, duodenal erosions, no active bleeding, no varices. Indirect gastric biopsies- H. pylori negative. 01/21/2015: *Stool antigen H. pylori-negative. 05/03/2017: WBC 8.3, H/H 13.5/41.0, MCV 99.7, RDW 14.4, PLT 211, BUN/Cr 21/0.8, GFR > 60, Ca2+ 9.4, with normal LFTs, including albumin 4.3, globulin 3.0. 05/21/2017: Admission labs- WBC 8.1, H/H 11.7/35.7, MCV 99.7, RDW 13.8, PLT 200, PT 10.9, INR 1.04, glucose 107, BUN/Cr 22/0.8, GFR > 60, normal electrolytes, including Na 141, K 4.3, HCO3 28, AG 8, lactate 1.1, Ca2+ 9.4, normal LFTs, including albumin 3.7, globulin 3.1, troponin < 0.01, B12 325, folate 14.3. 05/22/2017: WBC 7.1, H/H 11/33.4, MCV 100.4, RDW 13.4, PLT 189. BUN/Cr 15/0.7, GFR > 60. 05/22/17: EKG- NSR @ 69, normal axis, normal interval, no ischemia. 05/22/17: CT ABD & PELVIS W IV CONTRAST- Segment of mural prominence in the mid sigmoid colon containing diverticula with mild adjacent stranding; a mild diverticulitis is a possibility in the proper clinical setting. Correlation with recent or followup colonoscopy is advised, however, to exclude an underlying mass lesion. Left femoral fixation hardware is partially visualized. Degenerative changes are noted in the spine. Allergies/Medications Allergies: Coded Allergies: Sulfa (Sulfonamide Antibiotics) (Severe, SEVERE BODY RASH 01/30/16) cephalexin (Severe, "PIA JOSE SYNDROME" 01/30/16) Penicillins (Intermediate, RASH 01/30/16) levofloxacin (Intermediate, SORES IN MOUTH 01/30/16) sulfamethoxazole (From BACTRIM) (Intermediate, RASH 01/30/16) trimethoprim (From BACTRIM) (Intermediate, RASH 01/30/16) Quinolones (RASH 01/30/16) nitrofurantoin (SJS 01/30/16) ibuprofen (Mild, GI UPSET 01/30/16) Home Med List: Amlodipine Besylate 5 MG TABLET 1 TAB PO DAILY BP (Reported) Ascorbate Calcium (Vitamin C) 500 MG TABLET 1 TAB PO DAILY VITAMIN SUPPORT ( Reported) Bacillus Coagulans/Inulin (Probiotic Formula Capsule) 1 BILLION CELL-250 MG CAPSULE 1 CAP PO DAILY GI (Reported) Irbesartan (Avapro) 150 MG TABLET 1 TAB PO DAILY BP (Reported) Magnesium Oxide 400 MG TABLET 1 TAB PO DAILY SUPPLEMENT (Reported) Metoprolol Succ XL (Toprol Xl) 50 MG TAB 1 TAB PO DAILY bp (Reported) [place]-3S/Dha/Epa/Fish Oil ([place]-3 Fish Oil 1,000 MG Sfgl) 300-1,000MG CAPSULE 1 CAP PO TID SUPPLEMENT (Reported) Pravastatin Sodium 40 MG TABLET 1 TAB PO DAILY CHOLESTEROL (Reported) Past History Travel History Traveled to [place] past 21 day No Medical History Blood Transfusion Hx: Yes Neurological: NONE EENT: hearing loss (B/L hearing aids) Cardiovascular: CAD, hypertension, hyperlipidemia Respiratory: NONE Gastrointestinal: peptic ulcer disease (2015), upper GI bleed (hx PUD, HP-neg), diverticulosis coli Hepatic: NONE Renal: NONE Musculoskeletal: degen joint disease, osteoporosis, PMR Psychiatric: NONE Endocrine: hypothyroidism, osteoporosis Blood Disorders: NONE Cancer(s): NONE REFRIGERATOR GLAZIER/Reproductive: HARRY Surgical History Surgical History: hysterectomy (TAHBSO), ORIF left hip 2010, T&A Family History Relations & Conditions If Any: MOTHER, , Age 65; Cause: ICB (intracranial bleed). FATHER, , Age 94; Cause: Old age. Relation not specified for: FH: CAD (coronary artery disease) Psychosocial History Where Do You Live? Home Who Do You Live With? spouse Services at Home: None Primary Language: Norwegian Smoking Status: Never Smoked ETOH Use: denies use Illicit Drug Use: denies illicit drug use Living Will? no Power of Forestry Adviser/HCP? no Other Social History: . Lives with . 2 dtrs & 1 son- [employer]. No cigarettes, EtOH, or drugs. 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 Functional Ability ADLs Independent: dressing, eating, toileting, bathing. Ambulation: independent IADLs Independent: shopping, housework, finances, food prep, telephone, medication admin. Needs Assist: transportation (never drove). Employment History Employment: Retired Profession/Employer: loan secretary/housewife ECHO Results (as available) Date of last Echo 04/20/14 EF% 65 Review of Systems Review of Systems: Full 14 point ROS otherwise noncontributory, and as above. Review of Systems Constitutional: Reports: malaise. Denies: chills, diaphoresis, fever, weakness, unexplained weight loss. EENTM: Reports: hearing changes. Denies: blurred vision, double vision, visual changes , eye pain, eye drainage, eye tearing, icterus, ear discharge, ear pain, ear redness, nasal congestion, epistaxis, nasal pain, throat pain, throat swelling, mouth pain, tooth pain. Cardiovascular: Reports: peripheral edema (mild). Denies: chest pain, edema, orthopena, palpitations, syncope. Respiratory: Denies: cough, hemoptysis, orthopnea, short of breath, sputum production, stridor, wheezing. GI: Denies: no symptoms (BRBPR), abdominal pain, bloating, constipation, diarrhea, distention, bowel incontinence, melena, nausea, bloody stool, changes in stool, vomiting, steatorrhea. Genitourinary: Denies: discharge, dysuria, frequency, hematuria, hesitation, nocturia, pain, urgency. Musculoskeletal: Denies: back pain, gout, joint pain, joint swelling, muscle pain, muscle stiffness, neck pain. Skin: Denies: cysts, change in skin color, change in hair/nails, dryness, erythema, jaundice, lesions, lymphangitis, lumps, moles, rash. Neurological/Psychological: Denies: anxiety, ataxia, cognitive dysfunction, confusion, depressed, dementia, emotional problems, headache, numbness, paresthesia, pre-existing deficit, petit mal seizures, tingling, tremors, tonic-clonic seizures, unable to move lower ext , unable to move upper ext, weakness. Hematologic/Endocrine: Denies: bruising, bleeding, polyuria, polydipsia. Immunologic/Allergic: Denies: splenectomy, HIV/AIDS, lymphadenopathy. All Other Systems: Reviewed and Negative Exam & Diagnostic Data Vital Signs and I&O Vital Signs Date Time Temp Pulse Resp B/P B/P Pulse O2 O2 Flow FiO2 Mean Ox Delivery Rate 05/22 0831 98.1 65 20 150/80 94 Room Air 05/22 0541 98.0 64 22 158/70 98 Room Air 05/22 0406 97.7 71 18 178/79 97 Room Air 05/22 0336 146/68 05/22 0012 71 152/64 05/21 2328 97.4 71 16 105/70 97 Room Air Intake & Output 05/22 1600 05/22 0400 05/21 1600 05/21 0400 05/20 1600 05/20 0400 Intake Total 75 1000 Output Total Balance 75 1000 Intake, IV 75 1000 Patient 143 lb 143 lb Weight Weight Reported by Patient Reported by Patient Measurement Method Physical Exam: Well-developed, well-nourished, pleasant elderly female, in no apparent distress. Sclera anicteric. Conjunctiva pink. Oropharynx clear. No oral thrush. No aphthous ulcers. There is no adenopathy, thyromegaly, or JVD. No temporal artery tenderness. B/L hearing aids. No peripheral stigmata of inflammatory bowel disease or chronic liver disease on exam. No spiders on the anterior chest wall. No CVA tenderness. Lungs: clear to A&P. Heart exam: regular rate rhythm, S1 and S2, with soft I/ systolic murmur. Abdominal exam: normal bowel sounds, soft belly, nontender, without guarding or rebound. No mass. No organomegaly. No fluid shift. No pulsatile mass. No epigastric bruit. Faint bikini scar, post HARRY. Digital rectal exam (done by myself 05/22/17): light brown stool, without fresh blood or melena, OB-negative, without mass, nontender, no external hemorrhoid or fissure. Extremities: without cyanosis or clubbing. Trace pedal edema B/L. No palpable cords. Post ORIF left hip. +DJD. Distal pulses 1+ bilaterally. DTRs 2+ bilaterally. Alert and oriented x 3. Nonfocal. Motor 5/5 B/L, without any proximal muscle weakness, regarding PMR. Results Pertinent Lab Results: Laboratory Tests 05/22 05/22 05/22 0645 0425 0231 Chemistry Sodium (137 - 145 mmol/L) 140 Potassium (3.5 - 5.1 mmol/L) 4.1 Chloride (98 - 107 mmol/L) 108 H Carbon Dioxide (22 - 30 mmol/L) 23 Anion Gap (5 - 16) 9 BUN (7 - 17 mg/dL) 15 Creatinine (0.5 - 1.0 mg/dL) 0.7 Estimated GFR (>60 ml/min) > 60 BUN/Creatinine Ratio (7 - 25 %) 21.4 Lactic Acid Cancelled Coagulation PT (9.4 - 12.5 SEC) 10.9 INR (0.90 - 1.19) 1.04 Hematology CBC w Diff NO MAN DIFF REQ WBC (4.8 - 10.8 /CUMM) 7.1 RBC (4.20 - 5.40 /CUMM) 3.33 L Hgb (12.0 - 16.0 G/DL) 11.0 L Hct (37 - 47 %) 33.4 L MCV (81.0 - 99.0 FL) 100.4 H MCH (27.0 - 31.0 PG) 32.9 H RDW (11.5 - 14.5 %) 13.4 Plt Count (130 - 400 /CUMM) 189 MPV (7.4 - 10.4 FL) 10.4 Gran % (42.2 - 75.2 %) 65.2 Lymphocytes % (20.5 - 51.1 %) 23.0 Monocytes % (1.7 - 9.3 %) 9.5 H Eosinophils % (0 - 5 %) 2.0 Basophils % (0.0 - 2.0 %) 0.3 Absolute Granulocytes (1.4 - 6.5 /CUMM) 4.6 Absolute Lymphocytes (1.2 - 3.4 /CUMM) 1.6 Absolute Monocytes (0.10 - 0.60 /CUMM) 0.7 H Absolute Eosinophils (0.0 - 0.7 /CUMM) 0.1 Absolute Basophils (0.0 - 0.2 /CUMM) 0 PUBS MCHC (33.0 - 37.0 G/DL) 32.8 L 05/21 2340 Chemistry Sodium (137 - 145 mmol/L) 141 Potassium (3.5 - 5.1 mmol/L) 4.3 Chloride (98 - 107 mmol/L) 106 Carbon Dioxide (22 - 30 mmol/L) 28 Anion Gap (5 - 16) 8 BUN (7 - 17 mg/dL) 22 H Creatinine (0.5 - 1.0 mg/dL) 0.8 Estimated GFR (>60 ml/min) > 60 BUN/Creatinine Ratio (7 - 25 %) 27.5 H Glucose (65 - 99 mg/dL) 107 H Lactic Acid (0.7 - 2.1 mmol/L) 1.1 Calcium (8.4 - 10.2 mg/dL) 9.4 Total Bilirubin (0.2 - 1.3 mg/dL) 0.4 AST (14 - 36 U/L) 30 ALT (9 - 52 U/L) 38 Alkaline Phosphatase (<127 U/L) 65 Troponin I (< 0.11 ng/ml) < 0.01 Total Protein (6.3 - 8.2 g/dL) 6.8 Albumin (3.5 - 5.0 g/dL) 3.7 Globulin (1.9 - 4.2 gm/dL) 3.1 Albumin/Globulin Ratio (1.1 - 2.2 %) 1.2 Vitamin B12 (239 - 931 pg/mL) 325 Folate (2.76 - 20.0 ng/mL) 14.3 Hematology CBC w Diff NO MAN DIFF REQ WBC (4.8 - 10.8 /CUMM) 8.1 RBC (4.20 - 5.40 /CUMM) 3.58 L Hgb (12.0 - 16.0 G/DL) 11.7 L Hct (37 - 47 %) 35.7 L MCV (81.0 - 99.0 FL) 99.7 H MCH (27.0 - 31.0 PG) 32.7 H RDW (11.5 - 14.5 %) 13.8 Plt Count (130 - 400 /CUMM) 200 MPV (7.4 - 10.4 FL) 10.4 Gran % (42.2 - 75.2 %) 63.9 Lymphocytes % (20.5 - 51.1 %) 23.2 Monocytes % (1.7 - 9.3 %) 10.6 H Eosinophils % (0 - 5 %) 1.7 Basophils % (0.0 - 2.0 %) 0.6 Absolute Granulocytes (1.4 - 6.5 /CUMM) 5.2 Absolute Lymphocytes (1.2 - 3.4 /CUMM) 1.9 Absolute Monocytes (0.10 - 0.60 /CUMM) 0.9 H Absolute Eosinophils (0.0 - 0.7 /CUMM) 0.1 Absolute Basophils (0.0 - 0.2 /CUMM) 0 PUBS MCHC (33.0 - 37.0 G/DL) 32.8 L Imaging/Other Studies: 05/22/17: EKG- NSR @ 69, normal axis, normal interval, no ischemia. 05/22/17: CT ABD & PELVIS W IV CONTRAST- Segment of mural prominence in the mid sigmoid colon containing diverticula with mild adjacent stranding; a mild diverticulitis is a possibility in the proper clinical setting. Correlation with recent or followup colonoscopy is advised, however, to exclude an underlying mass lesion. Left femoral fixation hardware is partially visualized. Degenerative changes are noted in the spine. Assessment/Plan Assessment/Recommendations: 77-year-old female, HTN, HLD, medical ASHD, PMR, hypoT4, history of E. Coli urosepsis, uterine prolapse, history of PUD, DJD, osteoporosis, GAKONA with B/L hearing aids, history of transfusions (at time of UGIB from PUD & for ORIF left hip), TAWANDERSO, in [facility] until 10:30 PM on 05/21/2017, when she felt the urge to defecate, followed by painless spontaneous BRBPR 1 in the toilet water. There was no associated stool or melena. There was no chest pain, shortness of breath , palpitation, or LOC. Initially, there was no abdominal pain. The patient's daughter, Meena Bell, who is an RN, came to her house and took her blood pressure, which was normal. The patient had recently seen her status controller, Dr. Wong, this past week for mild fatigue and mild LE edema. No changes were made in her regimen. The patient presented to the [facility] ER 05/21/2017 at 11:10 PM, after being brought in by her daughter, for evaluation of the bleeding. Upon arrival, BP 105/70, P 71, T 97.4, R 16, O2 sat RA 97%. (She had taken her usual evening anti -HTN medications prior to arrival). She recived IV NS in the ER. She was not orthostatic. The ER admitted the patient to the ICU. The patient had 1 additional episode of spontaneous BRBPR at 2:30 AM., associated with mild bilateral lower abdominal cramps Her daughter, Meena, thought that there might have been a protruding hemorrhoid. Upon further questioning, for the past few weeks, the patient noted scant painless BRB on the toilet paper after wiping, after defecation of brown stool. There was minimal constipation and perhaps slight decreased stool caliber, without any diarrhea, tenesmus, or obstipation. The patient had been on Prednisone for PMR, which had been tapered off a week ago. She was on prophylactic Omeprazole daily while on the Prednisone, in view of her past history of peptic ulcer disease. The Omeprazole was stopped 1 week IRRIGATION MANAGER, when she stopped the Prednisone. The patient denied any nausea, vomiting, hematemesis, odynophagia, dysphagia, GERD, or early satiety. She was not on any aspirin or NSAIDs. She was not on any other anti- platelet agents or anti-coagulants. There is no family history of any GI malignancy, GI disease, or inherited liver disease. The patient subsequently had a brown bowel movement without blood earlier this morning, on 05/22/2017. 09/23/2003: Surgical colonoscopy per Dr. Lazo- "negative except diverticula" (purged). No history of colon polyps. (*She has not had a colonoscopy since). 06/15/2010: normal IgA 269, tTG Ab- negative, MMA 0.18, RBC folate 436, 12/29/2014: EGD per Dr. Isael Iqbal- 2 clean-based shallow gastric ulcers at lesser curvature aspect of antrum, duodenal erosions, no active bleeding, no varices. Indirect gastric biopsies- H. pylori negative. 01/21/2015: *Stool antigen H. pylori-negative. 05/03/2017: WBC 8.3, H/H 13.5/41.0, MCV 99.7, RDW 14.4, PLT 211, BUN/Cr 21/0.8, GFR > 60, Ca2+ 9.4, with normal LFTs, including albumin 4.3, globulin 3.0. 05/21/2017: Admission labs- WBC 8.1, H/H 11.7/35.7, MCV 99.7, RDW 13.8, PLT 200, PT 10.9, INR 1.04, glucose 107, BUN/Cr 22/0.8, GFR > 60, normal electrolytes, including Na 141, K 4.3, HCO3 28, AG 8, lactate 1.1, Ca2+ 9.4, normal LFTs, including albumin 3.7, globulin 3.1, troponin < 0.01, B12 325, folate 14.3. 05/22/2017: WBC 7.1, H/H 11/33.4, MCV 100.4, RDW 13.4, PLT 189. BUN/Cr 15/0.7, GFR > 60. 05/22/17: EKG- NSR @ 69, normal axis, normal interval, no ischemia. 05/22/17: CT ABD & PELVIS W IV CONTRAST- Segment of mural prominence in the mid sigmoid colon containing diverticula with mild adjacent stranding; a mild diverticulitis is a possibility in the proper clinical setting. Correlation with recent or followup colonoscopy is advised, however, to exclude an underlying mass lesion. Left femoral fixation hardware is partially visualized. Degenerative changes are noted in the spine. *Clinically, most likely the patient had a self-limited diverticular bleed. Despite the nonspecific CT findings, she does not have diverticulitis. One usually does not get active GI bleeding in the setting of diverticulitis. She is afebrile with a benign abdominal exam. Digital rectal exam by myself the morning of 05/22/2017 showed light brown, OB-negative stool, without any fresh blood. No masses were appreciated, nor were there any external hemorrhoids or fissures. Other possibilities could include angiodysplasia. The nonspecific findings on CT in the sigmoid region are probably related to extensive diverticulosis coli, however a mucosal lesion or neoplasm certainly is possible, as her last colonoscopy was nearly 14 years ago. The patient had no significant abdominal pain or diarrhea to suggest a colits, nor was any seen on CT. The above bleeding seemed to be more than one would expect from hemorrhoids. Clinically, there does not appear to be a rapid transit upper GI bleed, despite the past history of peptic ulcer disease. She was on prophylactic Omeprazole until her Prednisone, which she was on for PMR, was tapered off 1 week IRRIGATION MANAGER. The above diagnostic possibilities were discussed in great detail with the patient, her , the patient's daughter, Meena Bell RN, & the patient's son Abran Green, at the bedside in the ICU in great detail. Based on the patient's age, they opted for a noninvasive workup at the moment, and refused colonoscopy. SUGGEST: Clears po & advance diet as tolerated. T&C 4 u PRBC. Serial CBC Q 8-12h for now. Keep Hgb > 8 with history of ASHD. Supplemental O2 as needed. 2 large-bore IVs. Strict I's and O's. Would empirically resume PPI for stress ulcer prophylaxis, although again clinically, she does not have a rapid transit upper GI bleed. If stable, consider downgrading from ICU. If the patient actively rebleeds, and the family then wants a more aggressive workup, please contact GI & will consider CTA, colonoscopy, and/or surgical consultation. If the patient remains stable, she will probably be discharged tomorrow, as no aggressive workup is planned. Further inpatient GI workup as patient's family allows. If needed, Dr. Isael Iqbal will assume the patient's care tomorrow. Otherwise, Ms. Green can follow up with him as an outpatient. Problem List: 1. Lower GI bleed 2. Anemia 3. Diverticulosis of colon 4. History of peptic ulcer disease 5. Coronary artery disease 6. Polymyalgia rheumatica Copies To: CHETAN MAN,BHANU Parikh; ALICIA MAN,SYDNIE Loyd; BERNADETTE MAN,MATHEUS North; JARROD MAN ,ALISON Consult Acknowledgment - Thank you for your consult request.
[2017-05-22 08:31] VITALS: BP 150/80
[2017-05-22 16:00] VITALS: BP 150/70
--- NOTE | 2017-05-22 17:46 | Admission Certification ---
Admission Certification Certification Statement - As attending physician, I certify that at the time of - admission, based on clinical presentation, severity of - symptoms, need for further diagnostic testing and - therapeutic interventions, and risk of adverse outcomes - without in-hospital treatment, in my clinical assessment, - this patient requires an acute hospital stay for a minimum - of two nights or longer. I have also considered psychsocial - factors such as support system, advanced age, financial - issues, cognitive issues, and failed out-patient treatments, - past re-admission history, safety of patient, and lack of - compliance as applicable. Specific rationale supporting this admission is: Lower GI bleeding
--- NOTE | 2017-05-22 17:49 | PN- Att Addend ---
Attending Addendum Attending Brief Note 87-year-old white female had bright red blood through the rectum in a good amount as per daughter who is a nurse. Had no pain no fever was brought to the emergency room originally her stools were positive for occult blood and patient was admitted for close observation to monitor her H&H closely have a GI evaluation. CT scan of the abdomen suggestive of diverticular bleed. Patient at present stable depending on GI for further recommendations to consider conservative treatment and observation and if the patient starts breathing again and then will have a GI procedure. Laboratory Tests 05/22/17 0645: Anion Gap 9, Estimated GFR > 60, BUN/Creatinine Ratio 21.4, CBC w Diff NO MAN DIFF REQ, RBC 3.33 L, MCV 100.4 H, MCH 32.9 H, RDW 13.4, MPV 10.4, Gran % 65.2, Lymphocytes % 23.0, Monocytes % 9.5 H, Eosinophils % 2.0, Basophils % 0.3 , Absolute Granulocytes 4.6, Absolute Lymphocytes 1.6, Absolute Monocytes 0.7 H , Absolute Eosinophils 0.1, Absolute Basophils 0, PUBS MCHC 32.8 L 05/22/17 0425: PT 10.9, INR 1.04 05/22/17 0231: Lactic Acid Cancelled 05/21/17 2340: Anion Gap 8, Estimated GFR > 60, BUN/Creatinine Ratio 27.5 H, Glucose 107 H, Lactic Acid 1.1, Calcium 9.4, Total Bilirubin 0.4, AST 30, ALT 38, Alkaline Phosphatase 65, Troponin I < 0.01, Total Protein 6.8, Albumin 3.7, Globulin 3.1, Albumin/Globulin Ratio 1.2, Vitamin B12 325, Folate 14.3, CBC w Diff NO MAN DIFF REQ, RBC 3.58 L, MCV 99.7 H, MCH 32.7 H, RDW 13.8, MPV 10.4, Gran % 63.9, Lymphocytes % 23.2, Monocytes % 10.6 H, Eosinophils % 1.7, Basophils % 0.6, Absolute Granulocytes 5.2, Absolute Lymphocytes 1.9, Absolute Monocytes 0.9 H, Absolute Eosinophils 0.1, Absolute Basophils 0, PUBS MCHC 32.8 L Microbiology 05/22 600 UPPER RESP: Surveillance Culture - RECD 06/21 0600 GI: Surveillance Culture - RECD Vital Signs Date Time Temp Pulse Resp B/P B/P Pulse O2 O2 Flow FiO2 Mean Ox Delivery Rate 05/22 1600 98.6 64 22 150/70 93 Room Air Intake & Output 05/22 1600 Intake Total 750 Output Total 400 Balance 350 Intake, IV 600 Intake, Oral 150 Output, Urine 400
[2017-05-22 19:43] LABS: ABSOLUTE BASOPHIL COUNT 0 /CUMM (0.0-0.2); ABSOLUTE EOSINOPHIL COUNT 0.2 /CUMM (0.0-0.7); ABSOLUTE LYMPH COUNT 1.7 /CUMM (1.2-3.4); ABSOLUTE MONOCYTE COUNT 0.6 /CUMM (0.10-0.60); BASOPHIL % 0.5 % (0.0-2.0); EOSINOPHIL % 2.1 % (0-5); GRANULOCYTE % 66.9 % (42.2-75.2); HEMATOCRIT 36.3 % (37-47); MEAN CORPUSCULAR HGB 32.9 PG (27.0-31.0); MEAN CORPUSCULAR HGB CONC 32.3 G/DL (33.0-37.0); MEAN CORPUSCULAR VOLUME 101.7 FL (81.0-99.0); MEAN PLATELET VOLUME 11.4 FL (7.4-10.4); PLATELET COUNT 202 /CUMM (130-400); RBC DISTRIBUTION WIDTH 13.7 % (11.5-14.5); RED BLOOD CELL CT 3.57 /CUMM (4.20-5.40); WHITE BLOOD CELL COUNT 7.4 /CUMM (4.8-10.8)
[2017-05-23] VITALS: BP 170/80
[2017-05-23 05:41] LABS: ABSOLUTE BASOPHIL COUNT 0 /CUMM (0.0-0.2); ABSOLUTE EOSINOPHIL COUNT 0.2 /CUMM (0.0-0.7); ABSOLUTE LYMPH COUNT 1.7 /CUMM (1.2-3.4); ABSOLUTE MONOCYTE COUNT 0.7 /CUMM (0.10-0.60); BASOPHIL % 0.4 % (0.0-2.0); EOSINOPHIL % 1.9 % (0-5); GRANULOCYTE % 69.7 % (42.2-75.2); HEMATOCRIT 35.6 % (37-47); MEAN CORPUSCULAR HGB 32.9 PG (27.0-31.0); MEAN CORPUSCULAR HGB CONC 32.9 G/DL (33.0-37.0); MEAN CORPUSCULAR VOLUME 99.9 FL (81.0-99.0); MEAN PLATELET VOLUME 10.9 FL (7.4-10.4); PLATELET COUNT 204 /CUMM (130-400); RBC DISTRIBUTION WIDTH 13.8 % (11.5-14.5); RED BLOOD CELL CT 3.56 /CUMM (4.20-5.40); WHITE BLOOD CELL COUNT 8.6 /CUMM (4.8-10.8)
--- NOTE | 2017-05-23 06:39 | NUR ---
PATIENT AWAKE AND ALERT. MONITOR SINUS RHYTHM. PT OOB TO BEDSIDE COMMODE.VOIDED. HAD SMALL FORMED BROWN STOOL.QUIAC NEG.WHEN WIPING RECTAL AREA WITH WASHCLOTH. SMALL SMEAR OF BRIGHT RED BLOOD NOTED ON WASH CLOTH.DR. GUPTA NOTIFIED.
--- NOTE | 2017-05-23 07:32 | PN- Housestaff ---
Subjective Follow-up For: GI BLEED Subjective: Seen and examined at bedside. Pleasently cooperative,alert and orientedx3. Report one episode of scant blood on toilet paper, painless. Denies any chest pain/palpitation,shortness of breath,fever/chills,nausea/vomiting,abdominal pain , melena or BRBPR. Review of Systems Constitutional: Reports: see HPI. Objective Last 24 Hrs of Vital Signs/I&O Vital Signs Date Time Temp Pulse Resp B/P B/P Pulse O2 O2 Flow FiO2 Mean Ox Delivery Rate 05/23 0849 72 162/90 05/23 0848 72 162/90 05/23 0800 98 Room Air Room Air 05/23 0800 98.6 77 16 162/90 98 Room Air Room Air 05/23 0000 98 Room Air 05/23 0000 98.1 62 20 170/80 98 Room Air Intake & Output 05/23 1600 05/23 0800 05/23 0000 Intake Total 643 846 Output Total 2300 900 Balance -1657 -54 Intake, IV 643 586 Intake, Oral 260 Number 1 1 Bowel Movements Output, Urine 2300 900 Physical Exam General Appearance: Alert, Oriented X3, Cooperative Other Physical Findings: Skin Temp/Moisture Exam: Warm/Dry HEENT Atraumatic, PERRLA, EOMI, Mucous Membr. moist/pink Neck Supple, No JVD, No thryomegaly Lymphatic Cervical nl Cardiovascular Regular Rate, Normal S1, Normal S2, 1/6 Systolic murmur Lungs Clear to Auscultation, Normal Air Movement Abdomen Normal Bowel Sounds, Soft, No Tenderness, No Masses Neurological Normal Speech, Normal Tone Extremities No Clubbing, No Cyanosis, No Edema Vascular Pulses Symmetrical Rectal Fissures appreciated with blood noted, previous SANDY by ED physician showed brown stool with guiac + Current Medications: Current Medications Sig/Nathanael Start time Last Medication Dose Route Stop Time Status Admin Acetaminophen 650 MG ONCE ONE 05/23 0845 DC 05/23 PO 05/23 0846 0849 Amlodipine Besylate 5 MG DAILY 05/22 1000 DCD 05/23 PO 0848 Losartan Potassium 50 MG AT BEDTIME 05/22 2200 DCD 05/22 PO 2102 Magnesium Oxide 400 MG DAILY 05/22 1000 DCD 05/23 PO 0848 Metoprolol Succinate 50 MG DAILY 05/22 1000 DCD 05/23 PO 0849 Omeprazole 20 MG DAILY AC 05/23 0700 DCD 05/23 PO 0707 Pantoprazole Sodium 40 MG DAILY 05/22 0545 DC 05/22 IV 0634 Pravastatin Sodium 40 MG 1700 05/22 1700 DCD 05/22 PO 1658 Sodium Chloride 1,000 ML Q13H 05/22 0445 DCD 05/23 IV 0707 Last 24 Hrs of Lab/Kong Results Last 24 Hrs of Labs/Mics: Laboratory Tests 05/23/17 0430: Anion Gap 9, Estimated GFR > 60, BUN/Creatinine Ratio 10.0, Glucose 79, Calcium 8.9, Total Bilirubin 0.6, AST 23, ALT 33, Alkaline Phosphatase 61, Total Protein 6.3, Albumin 3.6, Globulin 2.7, Albumin/Globulin Ratio 1.3, CBC w Diff NO MAN DIFF REQ, RBC 3.56 L, MCV 99.9 H, MCH 32.9 H, RDW 13.8, MPV 10.9 H, Gran % 69.7, Lymphocytes % 19.7 L, Monocytes % 8.3, Eosinophils % 1.9, Basophils % 0.4 , Absolute Granulocytes 6.0, Absolute Lymphocytes 1.7, Absolute Monocytes 0.7 H , Absolute Eosinophils 0.2, Absolute Basophils 0, PUBS MCHC 32.9 L 05/22/17 1800: CBC w Diff NO MAN DIFF REQ, RBC 3.57 L, MCV 101.7 H, MCH 32.9 H, RDW 13.7, MPV 11.4 H, Gran % 66.9, Lymphocytes % 23.0, Monocytes % 7.5, Eosinophils % 2.1 , Basophils % 0.5, Absolute Granulocytes 5.0, Absolute Lymphocytes 1.7, Absolute Monocytes 0.6, Absolute Eosinophils 0.2, Absolute Basophils 0, PUBS MCHC 32.3 L Assessment/Plan Assessment: This is an 87-year-old very pleasant lady with a past medical history of hypertension, hyperlipidemia, PMR recently tapered off prednisone about a week ago, hypothyroidism, uterine prolapse, history of PUD, degenerative joint disease, presents for evaluation of spontaneous painless BRBPR. no associated melena, hematemesis reported. In admission, VS: BP 105/70, P 71, T 97.4, R 16, O2 sat RA 97%. H&H 11.7/35.7. Orthostats negative. She was admitted to ICU for treatment and management of lower GI bleed. Impression and plan #Lower GI bleed One episode of sponataneous and painless BRBPR. Most likely etiology includes diverticular bleeding versus hemorrhoidal bleeding versus AVM. Lack of pain makes mesenteric ischemia less likely. Most lower GI bleeding is transient with about 80% self-limiting. Patient was not amenable to colonoscopy yesterday and therefore it was deferred. H&H trended and was found to be stable never dropping below 8. Patient diet was advanced to clears last evening and to regular today morning. She also remained hemodynamically stable. Did have one episode of scant blood on the toilet tissue which could signify hemorrhoidal bleeding. Stool guiac remained negative. Patient is instructed to follow up with GI services upon discharge and to seek immediate medical attention if she redevelops rectal bleeding. Problem List: 1. GI bleed 2. Acute blood loss anemia Pain Ratin Pain Location: none Pain Goal: Remain pain free Pain Plan: per pathway Tomorrow's Labs & Rationales: none-discharge
[2017-05-23] MEDS ORDERED: OMEPRAZOLE20 M2 PO (07:35)
--- NOTE | 2017-05-23 07:39 | Patient Discharge Instructions ---
Discharge Instructions General Discharge Information Special Instructions: Please seek immediate medical attention if you continue to have rectal bleeding or you vomit blood Please contact your Stomach doctor (Dr Iqbal) within 1 week for a follow up. Please contact your primary care physcian within 1 Diet Continue normal diet: Yes Acute Coronary Syndrome Inclusion Criteria At DC or during hospital stay patient has or had the following: ACS DIAGNOSIS No Discharge Core Measures Meds if any: Prescribed or Continued at Discharge Meds if any: NOT Prescribed or Continued at Discharge Congestive Heart Failure Inclusion Criteria At DC or during hospital stay patient has or had the following: CHF DIAGNOSIS No Discharge Core Measures Meds if any: Prescribed or Continued at Discharge Meds if any: NOT Prescribed or Continued at Discharge Cerebrovascular accident Inclusion Criteria At DC or during hospital stay patient has or had the following: CVA/TIA Diagnosis No Discharge Core Measures Meds if any: Prescribed or Continued at Discharge Meds if any: NOT Prescribed or Continued at Discharge Venous thromboembolism Inclusion Criteria VTE Diagnosis No VTE Type NONE VTE Confirmed by (Test) NONE Discharge Core Measures - Per Current guidelines, there needs to be overlap - treatment for the first 5 days of Warfarin therapy. - If discharged on Warfarin prior to 5 days of - overlap therapy, the patient will need to be - assessed for post discharge needs including - *Post discharge parental anticoagulation - *Warfarin and/or parental anticoagulation education - *Follow up date to check INR post discharge Meds if any: Prescribed or Continued at Discharge Note: Overlap Therapy is Warfarin and Anticoagulant Meds if any: NOT Prescribed or Continued at Discharge
[2017-05-23 08:00] VITALS: BP 162/90
[2017-05-23 08:49] VITALS: BP 162/90
--- NOTE | 2017-05-23 12:28 | PN- Att Addend ---
Attending Addendum Attending Brief Note Patient stable sitting up in the chair, had a bowel movement negative for occult blood but when wiped had a little bit of red blood on the tissue. Tolerating clear liquids well her hematocrit and h hemoglobin is stable,. The reason for a little blood could be hemorrhoids. Patient's diet will be advanced and later on will be discharged home to follow with Dr. Kervin Iqbal and myself as an outpatient Laboratory Tests 05/23/17 0430: Anion Gap 9, Estimated GFR > 60, BUN/Creatinine Ratio 10.0, Glucose 79, Calcium 8.9, Total Bilirubin 0.6, AST 23, ALT 33, Alkaline Phosphatase 61, Total Protein 6.3, Albumin 3.6, Globulin 2.7, Albumin/Globulin Ratio 1.3, CBC w Diff NO MAN DIFF REQ, RBC 3.56 L, MCV 99.9 H, MCH 32.9 H, RDW 13.8, MPV 10.9 H, Gran % 69.7, Lymphocytes % 19.7 L, Monocytes % 8.3, Eosinophils % 1.9, Basophils % 0.4 , Absolute Granulocytes 6.0, Absolute Lymphocytes 1.7, Absolute Monocytes 0.7 H , Absolute Eosinophils 0.2, Absolute Basophils 0, PUBS MCHC 32.9 L 05/22/17 1800: CBC w Diff NO MAN DIFF REQ, RBC 3.57 L, MCV 101.7 H, MCH 32.9 H, RDW 13.7, MPV 11.4 H, Gran % 66.9, Lymphocytes % 23.0, Monocytes % 7.5, Eosinophils % 2.1 , Basophils % 0.5, Absolute Granulocytes 5.0, Absolute Lymphocytes 1.7, Absolute Monocytes 0.6, Absolute Eosinophils 0.2, Absolute Basophils 0, PUBS MCHC 32.3 L 05/22/17 0645: Anion Gap 9, Estimated GFR > 60, BUN/Creatinine Ratio 21.4, CBC w Diff NO MAN DIFF REQ, RBC 3.33 L, MCV 100.4 H, MCH 32.9 H, RDW 13.4, MPV 10.4, Gran % 65.2, Lymphocytes % 23.0, Monocytes % 9.5 H, Eosinophils % 2.0, Basophils % 0.3 , Absolute Granulocytes 4.6, Absolute Lymphocytes 1.6, Absolute Monocytes 0.7 H , Absolute Eosinophils 0.1, Absolute Basophils 0, PUBS MCHC 32.8 L 05/22/17 0425: PT 10.9, INR 1.04 05/22/17 0231: Lactic Acid Cancelled 05/21/17 2340: Anion Gap 8, Estimated GFR > 60, BUN/Creatinine Ratio 27.5 H, Glucose 107 H, Lactic Acid 1.1, Calcium 9.4, Total Bilirubin 0.4, AST 30, ALT 38, Alkaline Phosphatase 65, Troponin I < 0.01, Total Protein 6.8, Albumin 3.7, Globulin 3.1, Albumin/Globulin Ratio 1.2, Vitamin B12 325, Folate 14.3, CBC w Diff NO MAN DIFF REQ, RBC 3.58 L, MCV 99.7 H, MCH 32.7 H, RDW 13.8, MPV 10.4, Gran % 63.9, Lymphocytes % 23.2, Monocytes % 10.6 H, Eosinophils % 1.7, Basophils % 0.6, Absolute Granulocytes 5.2, Absolute Lymphocytes 1.9, Absolute Monocytes 0.9 H, Absolute Eosinophils 0.1, Absolute Basophils 0, PUBS MCHC 32.8 L Microbiology 05/22 600 UPPER RESP: Surveillance Culture - COMP 05/22 600 GI: Surveillance Culture - COMP
== END 2017-05-23 13:45 | disposition home health service (06) | DRG 378 ==
LOC: ERH 23:10 → ENRESERV 05-22 04:43 → ERHI 05-22 04:50 → CRI 05-22 04:50
PROVIDERS: Emergency Medicine; Internal Medicine; Student in an Organized Health Care Education/Training Program; ADMIT Internal Medicine
DX: K92.2 Gastrointestinal hemorrhage, unspecified (principal); D62 Acute posthemorrhagic anemia; I10 Essential (primary) hypertension; K57.30 Diverticulosis of large intestine without perforation or abscess without bleeding; M35.3 Polymyalgia rheumatica; I25.10 Atherosclerotic heart disease of native coronary artery without angina pectoris; E78.5 Hyperlipidemia, unspecified; E03.9 Hypothyroidism, unspecified
CPT/HCPCS: CCU; 36415; 74177; 82436; 93005; 93010; 96360